=== PATIENT | female | born 1990 | race Caucasian/White ===

== ENCOUNTER 2019-07-01 00:57 | Inpatient (IN) | payer OTHER ==
--- OUTSIDE RECORDS SUMMARY | 2019-07-01 04:07 | XMS REPORT ---
:1990 [facility] Address [address] [place] [address] Dr. Ryan [address] [place] [id number] Care Team Providers Name Role Phone Unavailable Unavailable Unavailable Problems This patient has no known problems. Allergies, Adverse Reactions, Alerts This patient has no known allergies or adverse reactions. Medications This patient has no known medications.
[2019-07-01] MEDS ORDERED: CARBOPROST TROME 250 MCG/ML IM PRN (04:10)
[2019-07-01] MEDS ORDERED: METHYLERGONOVINE 0.2MG/ML AMP IM PRN (04:10)
[2019-07-01] MEDS ORDERED: PROMETHAZINE 25 MG/ML VIAL IM PRN (04:10)
[2019-07-01] MEDS ORDERED: Ringers Lactate 1,000 ML IV PRN (04:10)
[2019-07-01] MEDS ORDERED: MEPERIDINE HCL 25 MG/0.5 ML IV PRN (04:10)
[2019-07-01] MEDS ORDERED: PENICILLIN 5 MU in NA CHLORIDE 0.9% 100 ML IV ONE (04:13)
[2019-07-01] MEDS ORDERED: PENICILLIN G POT 5 MU/VIAL IV ONE (04:32)
[2019-07-01] MEDS ORDERED: NA CHLORIDE 0.9% 100 ML IV ONE (04:32)
[2019-07-01] MEDS ORDERED: Ringers Lactate 1,000 ML IV ONE (04:39)
[2019-07-01] MEDS ORDERED: OXYTOCIN/LR 20 UNIT/1,000 ML BAG IV ONE (04:39)
[2019-07-01 04:49] VITALS: BMI 30.8
[2019-07-01 04:55] LABS: Urine Appearance CLOUDY; Urine Bilirubin NEGATIVE (NEG); Urine Blood NEGATIVE (NEG); Urine Color YELLOW; Urine Glucose NEGATIVE (NEG); Urine Protein NEGATIVE (NEG); Urine Specific Gravity <=1.005 (1.005-1.030); Urine Urobilinogen 0.2 mg/dL (0.2-1.0)
[2019-07-01 04:56] LABS: Absolute Lymphocytes (CBC) 1.5 K/uL (0.7-4.9); Basophils % 0.3 % (0-1.3); Lymphocytes % 17.6 % (15.3-44.8); MPV 9.7 fL (7.6-11.3); RBC Red Blood Cell Count 3.69 M/uL (3.86-4.86)
[2019-07-01] MEDS ORDERED: Ringers Lactate 1,000 ML IV SCH (05:00)
[2019-07-01] MEDS ORDERED: OXYTOCIN/LR 20 UNIT/1,000 ML BAG IV SCH ×2 (05:00→18:00)
[2019-07-01 05:52] LABS: Urine Bacteria 20-50 /HPF (<20); Urine Culture Reflex Order REFLEXED; Urine RBC NONE SEEN /HPF (NONE SEEN)
[2019-07-01] MEDS ORDERED: PENICILLIN 2.5 MU in NA CHLORIDE 0.9% 100 ML IV SCH (08:30)
[2019-07-01] MEDS ORDERED: HYDRALAZINE HCL 20 MG/ML VIAL IV ONE (09:23)
[2019-07-01] MEDS ORDERED: BUTORPHANOL 1 MG/ML INJ IV PRN (10:39)
[2019-07-01] MEDS ORDERED: ROPIVACAINE HCL 100 ML IV PRN (12:02)
[2019-07-01] MEDS ORDERED: FENTANYL CITR 100 MCG/2 ML IV ONE (12:04)
[2019-07-01] MEDS ORDERED: ROPIVACAINE HCL 0.2% 20ML AMP IV ONE (12:09)
[2019-07-01] MEDS ORDERED: LIDOCAINE 1% 20 ML MDV ONE (13:54)
[2019-07-01] MEDS ORDERED: DIPHENHYDRAMINE 25 MG TAB/CAP PO PRN (17:08)
[2019-07-01] MEDS ORDERED: DOCUSATE NA/SENNA CONC 1 TAB PO PRN (17:08)
[2019-07-01] MEDS ORDERED: ACETAMINOPHEN 500 MG TAB PO PRN (17:08)
[2019-07-01] MEDS ORDERED: Oxycodone HCl/Acetaminophen 1 TAB TAB PO PRN (17:08)
[2019-07-01] MEDS ORDERED: BISACODYL 10 MG RECTAL SUPP RECT PRN (17:08)
[2019-07-01] MEDS ORDERED: IBUPROFEN 200 MG TAB PO PRN (17:08)
--- NOTE | 2019-07-01 18:45 | PN ---
At patient's request, she has epidural seems to be functioning quite well. She is daniela every 2 minutes very firmly. Baby looks good on the monitor. She is 5 cm but at about the 11 o'clock posi tion, cervix slightly puffy. The other parts of the cervix about 80% effaced. She is about 0 statio n. She is on 20 milliunits of Pitocin. Baby is occiput posterior. She has been instructed to do pe lvic rocks. I think we can get the baby rotate was too much faster progress. ELLY/BRADLY Voice ID: [id number] Report ID: [id number]
[2019-07-01] MEDS: Oxycodone HCl/Acetaminophen 1 TAB TAB PO PRN (19:50)
[2019-07-01 20:43] LABS: RPR (Rapid Plasma Reagin) NON-REACT (NON-REACT)
--- NOTE | 2019-07-02 03:01 | OP ---
Surgeon: Jewel Cole MD A 29-year-old, 2, para 1, 39 weeks' gestation, admitted for induction of labor. Pros and con s of this thoroughly discussed prior to admission. Rh positive, immune to Rubella. Positive beta st rep screen. During the labor, patient received 3 doses of penicillin. First dose 5 million units, t he subsequent doses 2.5 million. Patient received Stadol IV initially, then requested and received e pidural anesthesia. Second stage of approximately 30 minutes. Spontaneous vaginal delivery of an es timated 7-pound plus or minus female, Apgars 9 and 9. Two small first-degree lacerations, 1 at the p osterior fourchette. Two kbqcap-ox-qxgrv stitches, 2-0 chromic, 1 in the left labia minora, running locked stitch 2-0 chromic, approximately 3 stitches. Schultze delivery of the placenta, which was in spected and noted to be unusual and that it was almost a [id number]-pb-zfagz, but otherwise intact. Memb ranes intact. Estimated blood loss 350 cc or less. Patient tolerated all procedures well. Final Diagnoses: Term intrauterine , 39 weeks. Labor induction. Vaginal delivery. Epidur al anesthesia. Beta strep prophylaxis. ARIANNEC/BRADLY Voice ID: [id number] Report ID: [id number]
[2019-07-02] MEDS: Oxycodone HCl/Acetaminophen 1 TAB TAB PO PRN ×3 (08:00→18:03)
--- NOTE | 2019-07-02 09:25 | PREOPHP ---
Date of Admission: 07/01/2019 This is a 29-year-old 2, para 1, at 39 weeks gestation, Rh positive. Immune to Rubella. Pos itive beta strep screen. Penicillin has been started. She is 1.5 cm posterior, -1 station. Rupture of membranes, clear fluid. FHTs normal and reactive. Probably will want epidural. She is not in h er good labor pattern yet. We will progressively increase the Pitocin until we get into a good labor pattern. Full labor talk given. Anticipate delivery sometime later this afternoon. ELLY/BRADLY Voice ID: [id number]
--- NOTE | 2019-07-02 09:28 | DS ---
Summary: 29-year-old 2, para 1, at 39 weeks gestation, delivered uneventfully of an estimate d 7-pound female, Apgars 9 and 9. Epidural anesthesia. Two first-degree lacerations, requiring 2-0 chromic, 1 at the posterior fourchette, 2 lrkwvx-fw-yhsip stitches, 1 left labia minora, running lock ed 3 stitches. Delivery of the placenta, which was inspected, less than 350 cc blood loss. Placenta unusual shaped, but intact, ttqcma-eb-pphlc type configuration. Penicillin prophylaxis x3 during th e labor. Rh positive, immune to Rubella. afebrile, ambulating and voiding. Lochia is no rmal. No post epidural problems. Will be dismissed later today, to return to my office in 6 weeks f or followup. To report any temperature elevation of 100 degrees or greater, severe pain, heavy bleed ing, or any other type of abnormalities. Tdap and flu shots offered. Dismissed with tramadol for an algesia although she may elect to take the Motrin instead. Final Diagnoses: Term intrauterine , 39 weeks. Vaginal delivery. Epidural anesthesia. Pe nicillin prophylaxis. ELLY/BRADLY Voice ID: [id number] Report ID: [id number]
[2019-07-02 16:33] VITALS: BP 139/85; TEMP 97.5
[2019-07-06 03:55] LABS: HBsAG Nonreactive (Nonreactive)
== END 2019-07-02 19:50 | disposition home or self-care (01) | DRG 807 ==
LOC: 2ND-WC 04:04
PROVIDERS: ADMIT Specialist; ATTEND Specialist
PROC: 10E0XZZ Delivery of Products of Conception, External Approach (ICD-10-PCS; principal; 2019-07-01)
PROC: 10907ZC Drainage of Amniotic Fluid, Therapeutic from Products of Conception, Via Natural or Artificial Opening (ICD-10-PCS; 2019-07-01)
PROC: 0HQ9XZZ Repair Perineum Skin, External Approach (ICD-10-PCS; 2019-07-01)
DX: O70.0 First degree perineal laceration during delivery (principal); Z37.0 Single live birth; O99.824 Streptococcus B carrier state complicating childbirth; Z3A.39 39 weeks gestation of pregnancy
CPT/HCPCS: 36415; 81001; 85025; 86592; 86901; 87086; 87088; 87340; J0360; J0595; J2210; J2550; J2590; J2795; J3010